=== PATIENT | male | born 1970 | race Caucasian/White ===

== ENCOUNTER 2020-06-09 05:56 | Emergency (ER) | payer SELFPAY ==
[~2020-06-09] VITALS: Ht 188 cm; Wt 93.0 kg
[2020-06-09 06:28] VITALS: BP 136/99
--- NOTE | 2020-06-09 06:29 | NUR ---
pt bibself c/o posterior headache x 3 days. pt denies nvd . pt aox4 rr even and unlabored. no sob noted. no nvd at this time. no acute distress noted. pt waiting for md camacho.
--- NOTE | 2020-06-09 06:35 | NUR ---
dr. ponce at bedside for eval.
[2020-06-09] MEDS ORDERED: IBUPROFEN 600 MG TABLET PO ONE (07:00)
[2020-06-09] MEDS ORDERED: IBUPROFEN 600 MG TABLET ONE (07:15)
[2020-06-09] MEDS ORDERED: METOCLOPRAMIDE HCL 10 MG/2 ML VIAL IV ONE (08:00)
[2020-06-09] MEDS ORDERED: METOCLOPRAMIDE HCL 10 MG/2 ML VIAL ONE (08:03)
--- NOTE | 2020-06-09 08:10 | NUR ---
IV LINE ESTABLISHED. PATIENT TAKEN TO RADIOLOGY FOR CT.
[2020-06-09] MEDS ORDERED: MORPHINE SULFATE INJ 4 MG/ML DISP.SYRIN ONE (08:58)
[2020-06-09] MEDS ORDERED: MORPHINE SULFATE INJ 2 MG/ML DISP.SYRIN IV ONE (09:00)
== END 2020-06-09 09:26 | disposition home or self-care (01) ==
LOC: ER 05:56
DX: R51 Headache (principal); Z60.2 Problems related to living alone
CPT/HCPCS: 70450; 96374; 96375; 99284; J2270; J2765